=== PATIENT | female | born 1995 | race American Indian/Alaskan Native ===

== ENCOUNTER 2018-02-01 23:16 | Emergency (ER) | payer BC ==
[2018-02-01 23:45] VITALS: BP 123/81; PULSE 75; RESP 20; TEMP 98.1; O2SAT 98
[2018-02-02 00:16] LABS: SQUAMOUS EPITHIAL 27 /hpf (0-5); URINE AMORPHOUS SEDIMENT RARE /ul (<OCC); URINE BACTERIA RARE (<OCC); URINE BILIRUBIN NEGATIVE (NEGATIVE); URINE BLOOD 2+ (NEGATIVE); URINE CLARITY Hazy (Clear); URINE COLOR Straw (YELLOW); URINE GLUCOSE (UA) NORMAL (Normal); URINE LEUKOCYTE ESTERASE 2+ Leu/uL (Negative); URINE PROTEIN NEGATIVE (NEGATIVE); URINE UROBILINOGEN NORMAL mg/dL (0.2-1.0)
--- NOTE | 2018-02-02 00:25 | C.PDOC ---
History Of Present Illness 22 y/o Female, 10 weeks , [id number] and 1 miscarriage, Presents to ED for complaints of vaginal spotting for the last 2 days. Patient states she presents to ED now because she "got off of work and she is here for evaluation ". Denies any other physical complaints. Patient had prior Ultrasound of this showing IUP. Patient is currently in no pain and is not bleeding at this time. Time Seen by Provider: 02/01/18 23:46 Chief Complaint (Nursing): Female Genitourinary History Per: Patient History/Exam Limitations: no limitations Onset/Duration Of Symptoms: Hrs Current Symptoms Are (Timing): Still Present Quality Of Discomfort: Unable To Describe Associated Symptoms: denies: Fever, Chills, Nausea, Vomiting Alleviating Factors: None Recent travel outside of the [place]: No Abnormal Vaginal Bleeding: Yes : 4 Para: 0 Miscarriage: 1 Past Medical History Reviewed: Historical Data, Nursing Documentation, Vital Signs Vital Signs: Last Vital Signs Temp 98.1 F 02/01/18 23:40 Pulse 75 02/01/18 23:40 Resp 20 02/01/18 23:40 BP 123/81 02/01/18 23:40 Pulse Ox 98 02/02/18 00:24 - Medical History PMH: No Chronic Diseases Surgical History: No Surg Hx Family History: States: No Known Family Hx - Social History Hx Alcohol Use: No Hx Substance Use: No - Immunization History Hx Tetanus Toxoid Vaccination: No Hx Influenza Vaccination: No Hx Pneumococcal Vaccination: No Review Of Systems Constitutional: Negative for: Fever, Chills Gastrointestinal: Negative for: Nausea, Vomiting, Diarrhea Genitourinary: Positive for: Vaginal Bleeding Neurological: Negative for: Weakness, Numbness Physical Exam - Physical Exam Appears: Non-toxic, No Acute Distress Skin: Warm, Dry Head: Atraumatic, Normacephalic Eye(s): bilateral: Normal Inspection Oral Mucosa: Moist Neck: Supple Chest: Symmetrical, No Tenderness Cardiovascular: Rhythm Regular Respiratory: Normal Breath Sounds, No Decreased Breath Sounds, No Rales, No Rhonchi, No Wheezing Gastrointestinal/Abdominal: Soft, No Tenderness, Other (Nongravid belly. ) Extremity: Normal ROM, No Tenderness, No Pedal Edema, No Deformity Extremity: Bilateral: Normal Color And Temperature, Normal ROM Neurological/Psych: Oriented x3, Normal Speech, Normal Cognition Gait: Steady ED Course And Treatment O2 Sat by Pulse Oximetry: 98 (RA) Pulse Ox Interpretation: Normal Medical Decision Making Medical Decision Making: spotting in early , no UTI prior confirmed IUP, Explained/ Confirmed US to role out ectopic . Informed patient length of workup and patient states she prefers urinalysis. Ordered Urinalysis. Disposition Doctor Will See Patient In The: Office Counseled Patient/Family Regarding: Studies Performed, Diagnosis - Disposition Referrals: [facility] [Outside] [facility] [Outside] Lianet Baker MD [Staff Provider] - Disposition: HOME/ ROUTINE Disposition Time: 00:24 Condition: GOOD Additional Instructions: continue normal care Ask Dr. Lianet Baker to refer you for further evaluation as needed Next US exam typically @ 12 weeks Instructions: - The Third Month Forms: [employer] (Khmer) - Clinical Impression Clinical Impression: - Scribe Statement The provider has reviewed the documentation as recorded by the Scribanum Goldberg All medical record entries made by the Scribe were at my direction and personally dictated by me. I have reviewed the chart and agree that the record accurately reflects my personal performance of the history, physical exam, medical decision making, and the department course for this patient. I have also personally directed, reviewed, and agree with the discharge instructions and disposition.
== END 2018-02-02 00:35 | disposition home or self-care (01) ==
LOC: C.ER 23:16
DX: O20.9 Hemorrhage in early pregnancy, unspecified (principal); Z3A.10 10 weeks gestation of pregnancy

== ENCOUNTER 2018-02-11 08:10 | Day surgery (SDC) | payer BC ==
[2018-02-11] MEDS ORDERED: Doxycycline 100 mg Inj ONE (11:06)
[2018-02-11] MEDS ORDERED: HYDROmorphone 0.5 mg/0.5 ml ISec IVP PRN (11:15)
[2018-02-11] MEDS ORDERED: Midazolam 2 MG/2 ML VIAL ONE (11:33)
[2018-02-11] MEDS ORDERED: Propofol 10 mg/ml Inj (20 ML) ONE (11:33)
[2018-02-11] MEDS ORDERED: Vasopressin 20 Units/ml Inj ONE (11:51)
[2018-02-11] MEDS ORDERED: Oxytocin 10 Units/ml Inj ONE (11:53)
--- NOTE | 2018-02-11 12:15 | PCM.SURG1 ---
Surgeon's Initial Post Op Note - Surgeon's Notes Surgeon: Lianet Baker MD Yard Laborer: none Type of Anesthesia: General LMA Pre-Operative Diagnosis: Missed Operative Findings: 8 weeks size uterus, no adnexal masses bilaterally , 7 curved suctin currette, moderage amoutns of prodcuts of conception, ebl 250 ml, pitocon ad methergien IM x 1 Post-Operative Diagnosis: same as above Operation Performed: Suction dilation and currettage Specimen/Specimens Removed: products of conception Estimated Blood Loss: EBL {In ML}: 250 Blood Products Given: N/A Drains Used: No Drains Post-Op Condition: Good Date of Surgery/Procedure: 02/11/18 Time of Surgery/Procedure: 11:30
[2018-02-11 12:53] VITALS: O2SAT 98
[2018-02-11 13:06] VITALS: BP 111/48; PULSE 74; RESP 19; TEMP 97.6
--- NOTE | 2018-02-12 07:04 | OP ---
PROCEDURE DATE: 02/11/2018 SURGEON: Lianet Baker MD GAS PUMPING [employer]ATION OPERATOR: None. PREOPERATIVE DIAGNOSIS: Missed . POSTOPERATIVE DIAGNOSIS: Missed . OPERATIVE FINDINGS: An 8-week size uterus. No adnexal masses bilaterally. A 7 mm curve suction curette was used. Moderate amount of products of conception. Pitocin given through the IV and Methergine IM x1. TYPE OF ANESTHESIA: General LMA. OPERATION PERFORMED: Suction dilation and curettage. SPECIMENS REMOVED: Products of conception. ESTIMATED BLOOD LOSS: 250 mL. BLOOD PRODUCTS: None. COMPLICATIONS: None. DESCRIPTION OF PROCEDURE: The patient was taken to the operating room where she was given general anesthesia. Once found to be adequate, she was placed on the operating table in dorsal lithotomy position with legs supported using stirrups. The patient was then prepped and draped in the usual sterile fashion. Time-out confirmed correct patient and correct procedure. The patient was given preoperative prophylactic antibiotics. Bimanual exam was performed with the above-mentioned findings. A red rubber catheter was inserted into the urethra to drain the bladder. Following this, a Brown retractor was placed on the anterior and posterior fornix of the vagina. The cervix was adequately visualized. A single-tooth tenaculum was placed in the anterior lip of the cervix. The cervix was sequentially dilated with Luis Manuel dilator to allow for introduction of a 7-mm curved curette which was advanced to the fundus, and the suction curette was then activated and rotated 360 degrees until all products were removed. This was done 4 times. Following this, the suction curette was then removed. Pitocin was then given through IV due to some bleeding. Gentle curettage was done at 360 degrees until a gritty texture was noted. The suction curettage was then re-advanced until all products were removed and air bubbles were noted within the suction curette. Methergine IM x1 was given to ensure hemostasis after bimanual exam was performed with uterine massage. There was good hemostasis noted. All instruments were removed. . At the end of the procedure, all needle, sponge, and instrument counts were noted and correct x2. The patient tolerated the procedure well and was transferred to the recovery room in stable condition. Lianet Baker MD [facility] # [id number]
== END 2018-02-11 15:27 | disposition home or self-care (01) ==
LOC: C.SDS 08:10
PROVIDERS: ATTEND Obstetrics & Gynecology
DX: O02.1 Missed abortion (principal)
CPT/HCPCS: 36415; 59820; 86850; 86900; 88305; J1170; J2210; J2250; J2405; J2590; J2704; J3010